=== PATIENT | female | born 1965 | race African-American/Black ===

== ENCOUNTER 2016-11-27 12:03 | Emergency (ER) | payer OTHER ==
[~2016-11-27] VITALS: Ht 172.7 cm; Wt 136.1 kg
--- NOTE | ~2016-11-27 | EKG ---
[address] [address] ELECTROCARDIOGRAM REPORT Name: ARELY COPPOLA Room #: [facility]#: [id number] Admission: 11/27/16 Attend Phys: Discharge: 11/27/16 Date of : 65 Report #: [id number] THIS REPORT FOR: //name// [facility] ED Test Date: 2016-11-27 Test Time: 12:23:31 Pat Name: ARELY COPPOLA Department: Room: Gender: F [employer]: JETHRO : 1965 Requested By: Miryam Michelle Order Number: [id number] MD: Jeremy Landaverde Measurements Intervals Sharon Rate: 103 P: 48 AL: 183 QRS: 71 QRSD: 103 T: 72 QT: 389 QTc: 509 Interpretive Statements Sinus tachycardia Ventricular premature complex Borderline prolonged QT interval Baseline wander in lead(s) V6 No previous ECG available for comparison Electronically Signed On 11-28-2016 8:18:05 CDT by Jeremy Landaverde [email or web address] <ELECTRONICALLY SIGNED> By: Jeremy Landaverde MD, [facility] 11/28/16 0818 D: [id number] Jeremy Landaverde MD, FAC /EPI
[~2016-11-27 12:03] MED LIST: AMOXICILLIN500 M1 PO; AMOXICILLIN875 MG PO; FLEXERIL PO; HYDROCODONE-AP1 EAC6 PO; IBUPROFEN 600600 M1 PO; TRAMADOL 50 MG50 MG PO; TRAZODONE HCL100 MG PO
[2016-11-27 13:01] LABS: HEMATOCRIT 40.6 % (37.0-47.0); HEMOGLOBIN 13.6 gm/dL (12.0-15.0); MCH 29.9 pg (26.0-34.0); MCHC 33.4 g/dL (28.0-37.0); MCV 89.4 fL (80.0-100.0); PLATELET COUNT 185 thou/uL (150-400); RBC 4.55 mil/uL (4.20-5.00); RDW 14.3 % (10.5-14.5); WBC 17.8 thou/uL (4.0-11.0)
[2016-11-27 13:03] LABS: MANUAL DIFF YES
[2016-11-27] MEDS ORDERED: LISINOPRIL10 MG PO (13:07)
[2016-11-27 13:10] LABS: CALCIUM 8.9 mg/dL (8.5-10.1); CREATININE 0.7 mg/dL (0.6-1.0); POTASSIUM 4.6 mmol/L (3.5-5.1)
[2016-11-27 13:47] LABS: ABSOLUTE NEUTROPHILS 15.1 thou/uL (1.4-8.2); PLATELET ESTIMATE NORMAL; TOTAL CELL COUNT 100
[2016-11-27] MEDS ORDERED: VALIUM5 MG PO (13:49)
[2016-11-27] MEDS ORDERED: AUGMENTIN 875-1 EACH PO (13:49)
[2016-11-27 14:05] VITALS: BP 156/65
== END 2016-11-27 14:37 | disposition home or self-care (01) ==
LOC: ER 12:03
PROVIDERS: Emergency Medicine
DX: G43.809 Other migraine, not intractable, without status migrainosus (principal); M54.12 Radiculopathy, cervical region; D72.828 Other elevated white blood cell count; M54.16 Radiculopathy, lumbar region; J32.8 Other chronic sinusitis; Z90.2 Acquired absence of lung [part of]; Z88.6 Allergy status to analgesic agent